=== PATIENT | male | born 2000 | race African-American/Black ===

== ENCOUNTER 2023-03-12 07:52 | Emergency (ER) | payer SELFPAY ==
[2023-03-12 09:18] LABS: SARS-CoV-2 NAA Rapid Test DETECTED (NotDetected)
== END 2023-03-12 09:30 | disposition home or self-care (01) ==
LOC: CSHERS 07:52
DX: U07.1 COVID-19 (principal)
CPT/HCPCS: 87081; 87430; 99283

== ENCOUNTER 2023-03-31 10:45 | Emergency (ER) | payer SELFPAY | END 2023-03-31 12:01 | disposition home or self-care (01) | LOC: CSHERS 10:45 | DX: H60.01 Abscess of right external ear (principal) | CPT/HCPCS: 99282 ==